=== PATIENT | female | born 1965 | race Asian ===

== ENCOUNTER 2022-07-21 07:32 | Day surgery (SDC) | payer OTHER ==
[~2022-07-21] VITALS: Ht 160 cm; Wt 65.8 kg
[2022-07-21] MEDS ORDERED: MEPERIDINE 50 MG/ML VIAL ONE (08:22)
[2022-07-21] MEDS ORDERED: MIDAZOLAM HCL 5 MG/5 ML VIAL ONE (08:23)
[2022-07-21] MEDS ORDERED: ONDANSETRON HCL 4 MG/2 ML VIAL ONE (10:59)
[2022-07-21 14:24] VITALS: BP_SYST 82
== END 2022-07-21 11:56 | disposition home or self-care (01) ==
LOC: EDSEX 07:32 → SDS 07:32 → SMU 09:24 → SDS 11:56
PROVIDERS: ATTEND Internal Medicine Gastroenterology
DX: Z12.11 Encounter for screening for malignant neoplasm of colon (principal); D12.2 Benign neoplasm of ascending colon; K64.8 Other hemorrhoids; K57.30 Diverticulosis of large intestine without perforation or abscess without bleeding; E78.5 Hyperlipidemia, unspecified; E03.9 Hypothyroidism, unspecified; Z79.899 Other long term (current) drug therapy; Z20.822 Contact with and (suspected) exposure to COVID-19
CPT/HCPCS: 45380; 87426; 36415; 88305; 99152; G0378; J2250; J2405; J2175